=== PATIENT | female | born 1970 | race Caucasian/White ===

== ENCOUNTER 2022-04-10 10:18 | Emergency (ER) | payer BC ==
[2022-04-10 10:55] VITALS: BP 113/59; PULSE 59; TEMP 97.2; BMI 28.3
[2022-04-10] MEDS ORDERED: DIPHTH,PERTUSS(ACELL),TET 0.5 ML DISP.SYRIN IM ONE ×2 (11:39→11:55)
== END 2022-04-10 12:56 | disposition home or self-care (01) ==
LOC: JERFT 10:18
PROC: 3E0234Z Introduction of Serum, Toxoid and Vaccine into Muscle, Percutaneous Approach (ICD-10-PCS; principal; 2022-04-10)
DX: S61.032A Puncture wound without foreign body of left thumb without damage to nail, initial encounter (principal); W46.1XXA Contact with contaminated hypodermic needle, initial encounter
CPT/HCPCS: 82962; 90715; 99284-25

== ENCOUNTER 2023-02-28 19:02 | Emergency (ER) | payer BC ==
[2023-02-28 19:06] VITALS: BP 114/84; PULSE 98; RESP 18; TEMP 97.9; BMI 23.6
== END 2023-02-28 20:03 | disposition home or self-care (01) ==
LOC: JERFT 19:02
DX: S50.312A Abrasion of left elbow, initial encounter (principal); S80.212A Abrasion, left knee, initial encounter; S80.211A Abrasion, right knee, initial encounter; M25.421 Effusion, right elbow; W10.9XXA Fall (on) (from) unspecified stairs and steps, initial encounter; Y93.01 Activity, walking, marching and hiking; Y92.009 Unspecified place in unspecified non-institutional (private) residence as the place of occurrence of the external cause
CPT/HCPCS: 73070-TC-RT-FY; 99283-25